=== PATIENT | male | born 1985 | race Caucasian/White ===

== ENCOUNTER 2018-09-13 01:14 | Emergency (ER) | payer BC ==
[2018-09-13 01:23] VITALS: TEMP 97.4
--- NOTE | 2018-09-13 01:54 | ED ---
Male Urogenital HPI - General Source: patient, RN notes reviewed, old records reviewed, Caregiver Mode of arrival: ambulatory Limitations: physical limitation <Martha Harrington - Last Filed: 09/13/18 04:06> <Lilli Martinez - Last Filed: 09/13/18 04:51> - General Chief complaint: Urogenital Stated complaint: Testicular Pain Time Seen by Provider: 09/13/18 01:29 - History of Present Illness Initial comments: 33-year-old male presents emergency department today for evaluation of left scrotal pain. Patient reports it seemed like it. So after doing heavy lifting a certain have some pain. Patient reports that he's had progressive worsening symptoms since 4:00 this evening. Patient reports it's worse with coughing sitting o pressing on the abdomen. Denies any dysuria or penile discharge. No concern for STDs. (Martha Harrington) - Related Data Allergies Allergy/AdvReac Type Severity Reaction Status Date / Time vancomycin Allergy Rash/Hives Verified 09/13/18 01:23 Review of Systems ROS Other: All systems not noted in ROS Statement are negative. <Martha Harrington - Last Filed: 09/13/18 04:06> ROS Other: All systems not noted in ROS Statement are negative. <Lilli Martinez P - Last Filed: 09/13/18 04:51> ROS Statement: Those systems with pertinent positive or pertinent negative responses have been documented in the HPI. Past Medical History Past Medical History: No Reported History History of Any Multi-Drug Resistant Organisms: Other MDRO Date of last positivie culture/infection: 2011 MDRO Source:: finger left index Additional Past Surgical History / Comment(s): hernia repair- 2007 Past Psychological History: No Psychological Hx Reported Smoking Status: Never smoker Past Alcohol Use History: None Reported Past Drug Use History: None Reported <Martha Harrington - Last Filed: 09/13/18 04:06> General Exam Limitations: physical limitation General appearance: alert, in no apparent distress Head exam: Present: atraumatic Eye exam: Present: normal appearance, PERRL, EOMI. Absent: scleral icterus, conjunctival injection, periorbital swelling ENT exam: Present: normal exam, mucous membranes moist Neck exam: Present: normal inspection. Absent: tenderness, meningismus, lymphadenopathy Respiratory exam: Present: normal lung sounds bilaterally. Absent: respiratory distress, wheezes, rales, rhonchi, stridor Cardiovascular Exam: Present: regular rate, normal rhythm, normal heart sounds. Absent: systolic murmur, diastolic murmur, rubs, gallop, clicks GI/Abdominal exam: Present: soft, normal bowel sounds. Absent: distended, tenderness, guarding, rebound, rigid exam: Present: testicular tenderness (Said testicular tenderness.). Absent: scrotal swelling, vertical testicular lie, circumcision External exam: Present: normal external exam Speculum exam: Present: normal speculum exam By manual exam: Present: normal by manual exam Extremities exam: Present: normal inspection, full ROM, normal capillary refill. Absent: tenderness, pedal edema, joint swelling, calf tenderness Back exam: Present: normal inspection Neurological exam: Present: alert, oriented X3, CN II-XII intact Psychiatric exam: Present: normal affect, normal mood Skin exam: Present: warm, dry, intact, normal color. Absent: rash <Martha Harrington - Last Filed: 09/13/18 04:06> - General Exam Comments Initial Comments: 33-year-old male. Alert and oriented. No significant distress. (Martha Harrington) Course Vital Signs 09/13/18 09/13/18 01:16 04:16 Temperature 97.4 F L Pulse Rate 47 L 70 Respiratory 18 16 Rate Blood Pressure 111/65 130/62 O2 Sat by Pulse 98 Oximetry Medical Decision Making - Radiology Data Radiology results: report reviewed <Martha Harrington - Last Filed: 09/13/18 04:06> <Lilli Martinez - Last Filed: 09/13/18 04:51> - Medical Decision Making 33-year-old male presents emergency department today for evaluation complaints of left-sided testicular pain worsening over the past 4 days. Symptoms started after doing heavy lifting. Patient has some testicular tenderness, as well as slight bulge with coughing noted on hernia exam. Patient has no sign of strangulation. Patient has normal urinalysis. Ultrasound was positive for left-sided varicocele. Discusses likely source patient's pain. Discussed he needs to use scrotal support and follow-up with urology. (Martha Harrington) I was available for consultation in the emergency department. The history and physical exam were done by the midlevel provider. I was consulted for this patient's care. I reviewed the case with the midlevel provider and based on their presentation of the patient, I agree with the assessment, medical decision making and plan of care as documented. Chart was dictated using [employer] dictation software. Attempts were made to correct any dictation errors however some typographical errors may persist. (Lilli Martinez) - Lab Data Lab Results 09/13/18 Range/Units 03:27 Urine Color Light Yellow Urine Appearance Clear (Clear) Urine pH 6.0 (5.0-8.0) Ur Specific [place] 1.020 (1.001-1.035) Urine Protein Negative (Negative) Urine Glucose (UA) Negative (Negative) Urine Ketones Negative (Negative) Urine Blood Negative (Negative) Urine Nitrite Negative (Negative) Urine Bilirubin Negative (Negative) Urine Urobilinogen <2.0 (<2.0) mg/dL Ur Leukocyte Esterase Negative (Negative) - Radiology Data Ultrasound shows no acute findings. No orchitis reports an. Left-sided varicocele. (Martha Harrington) Disposition Is patient prescribed a controlled substance at d/c from ED?: No Time of Disposition: 03:48 <Martha Harrington - Last Filed: 09/13/18 04:06> <Lilli Martinez - Last Filed: 09/13/18 04:51> Clinical Impression: Left varicocele Disposition: HOME SELF-CARE Condition: Good Instructions (If sedation given, give patient instructions): Varicocele (ED) Additional Instructions: Patient advised to follow-up with PCP and urology. Patient should use scrotal support with compression shorts. Return to emergency department if any alarming signs or symptoms occur. Referrals: Arnold Cross MD [Primary Care Provider] - 1-2 days Se Chou MD [STAFF PHYSICIAN] - 1-2 days
--- NOTE | 2018-09-13 03:40 | US ---
EXAM: US Scrotum CLINICAL HISTORY: ITS.REASON US Reason: Pain TECHNIQUE: Real-time ultrasound of the scrotum with color Doppler and image documentation. COMPARISON: No relevant prior studies available. FINDINGS: Right testicle: No mass. No torsion. Left testicle: No mass. No torsion. Epididymides: Unremarkable. Scrotum: No hydroceles. Left varicocele. IMPRESSION: 1. No acute findings. No orchitis or torsion. 2. Left-sided varicocele.
[2018-09-13 03:57] LABS: Appearance,Urine Clear (Clear); Bilirubin,Urine Negative (Negative); Blood,Urine Negative (Negative); Color,Urine Light Yellow; Glucose,Urine (UA) Negative (Negative); Ketones,Urine Negative (Negative); Leukocyte Esterase,Urine Negative (Negative); Nitrite,Urine Negative (Negative); Protein,Urine Negative (Negative); Urobilinogen,Urine <2.0 mg/dL (<2.0)
[2018-09-13 04:22] VITALS: BP 130/62; PULSE 70; RESP 16
== END 2018-09-13 04:22 | disposition home or self-care (01) ==
LOC: EC 01:14
DX: I86.1 Scrotal varices (principal); Z88.1 Allergy status to other antibiotic agents; X50.0XXA Overexertion from strenuous movement or load, initial encounter
CPT/HCPCS: 76870; 81003; 93975; 99284

== ENCOUNTER → 2020-02-11 | Outpatient (CLI) | payer BC ==
[2020-02-12 04:36] LABS: Rheumatoid Factor, Qnt <4 IU/mL (0-15); Uric Acid 5.4 mg/dL (3.7-8.7)
[2020-02-12 07:02] LABS: Cyclic Citrullinated Pep IgG NEGATIVE (NEGATIVE)
[2020-02-12 12:10] LABS: HLA B27 NEGATIVE
== END | disposition home or self-care (01) ==
LOC: LABWHC1 12:27
PROVIDERS: ATTEND Orthopaedic Surgery Foot and Ankle Surgery
DX: G57.51 Tarsal tunnel syndrome, right lower limb (principal); G57.52 Tarsal tunnel syndrome, left lower limb
CPT/HCPCS: 36415; 82306; 84443; 84550; 85652; 86200; 86431; 86812

== ENCOUNTER 2022-03-19 11:43 | Emergency (ER) | payer BC ==
[2022-03-19 12:37] VITALS: BP 132/80; RESP 16; TEMP 98
--- NOTE | 2022-03-19 13:26 | ED ---
General Adult HPI - General Chief complaint: Trauma Stated complaint: knee injury Time Seen by Provider: 03/19/22 13:09 Source: patient Mode of arrival: ambulatory Limitations: no limitations - History of Present Illness Initial comments: This patient is a 36-year-old man who presents to have evaluation of his left leg. The patient states that yesterday in the evening he had been chopping some wood. He was using an ax he states just taking short swings and the ax glanced off piece and struck him medial aspect of the left knee. He states that he c leansed the wound last night and again this morning using Hibiclens any applied mupirocin ointment. He bandaged it and thought he was doing well but this morning he had an increase in bleeding so he did go to an urgent care to see about it and they forwarded him here because of the bleeding. Patient states that his last tetanus shot was probably 6 or 8 years ago. He denies significant pain and declines analgesia. He denies loss of function man has been ambulating. Onset/Timin -: hour(s) Location: left, lower extremity Quality: sharp Consistency: intermittent Improves with: none Worsens with: none Associated Symptoms: other (bleeding) - Related Data Allergies Allergy/AdvReac Type Severity Reaction Status Date / Time vancomycin Allergy Rash/Hives Verified 03/19/22 12:37 Review of Systems ROS Statement: Those systems with pertinent positive or pertinent negative responses have been documented in the HPI. ROS Other: All systems not noted in ROS Statement are negative. Constitutional: Denies: fever, chills Respiratory: Denies: cough, dyspnea Cardiovascular: Denies: chest pain, palpitations Gastrointestinal: Denies: abdominal pain Musculoskeletal: Denies: back pain Skin: Reports: as per HPI, other (Left leg laceration) Neurological: Denies: weakness, numbness, paresthesias Past Medical History Past Medical History: No Reported History History of Any Multi-Drug Resistant Organisms: Other MDRO Date of last positivie culture/infection: 2011 MDRO Source:: finger left index Additional Past Surgical History / Comment(s): hernia repair- 2007 Past Psychological History: No Psychological Hx Reported Smoking Status: Heavy tobacco smoker Past Alcohol Use History: Daily Past Drug Use History: None Reported General Exam Limitations: no limitations General appearance: alert, in no apparent distress GI/Abdominal exam: Present: other (Strong distal pulses. Normal capillary refill.) Left Upper Leg exam: Present: normal inspection, full ROM. Absent: tenderness, swelling Knee exam: Present: normal inspection, full ROM, laceration. Absent: tenderness, swelling Lower Leg exam: Present: normal inspection, full ROM. Absent: tenderness, swelling Neurovascular tendon exam: Absent: pulse deficit, abnormal cap refill Skin exam: Present: warm, dry, normal color, other (Approximately 3 cm laceration to the medial aspect of the left knee.) Course Vital Signs 03/19/22 12:35 Temperature 98 F Pulse Rate 82 Respiratory 16 Rate Blood Pressure 132/80 O2 Sat by Pulse 98 Oximetry Procedures - Laceration Laceration #1 Consent Obtained: verbal consent Indication: laceration Site: lower extremity Size (cm): 3 Description: linear Depth: simple, single layer Anesthetic Used: lidocaine 1% Anesthesia Technique: local infiltration Amount (mls): 2 Type of Sutures: nylon Size of Sutures: 4-0 Number of Sutures: 7 Technique: simple, interrupted Patient Tolerated Procedure: well, no complications Disposition Clinical Impression: Laceration of leg Disposition: HOME SELF-CARE Condition: Good Instructions (If sedation given, give patient instructions): Laceration (DC) Is patient prescribed a controlled substance at d/c from ED?: No Referrals: Arnold Cross MD [Primary Care Provider] - 1-2 days
[2022-03-19] MEDS ORDERED: LIDOCAINE 1% (PF) 10 MG/ML (30 ML SDV) SQ STA (14:24)
--- NOTE | 2022-03-19 14:33 | XR ---
Left knee. HISTORY: Rule out foreign body following injury with an axe. COMPARISON: None. TECHNIQUE: 3 views of the left knee were obtained. There is no fracture, dislocation, intraosseous or intra-articular abnormality. There is no radiopaqu e foreign body and the soft tissues are unremarkable.. IMPRESSION: No significant abnormality seen. There is no radiopaque foreign body.
[2022-03-19 15:10] VITALS: PULSE 68
== END 2022-03-19 15:09 | disposition home or self-care (01) ==
LOC: EC 11:43
DX: S81.812A Laceration without foreign body, left lower leg, initial encounter (principal); F17.210 Nicotine dependence, cigarettes, uncomplicated; Z88.1 Allergy status to other antibiotic agents; W22.8XXA Striking against or struck by other objects, initial encounter
CPT/HCPCS: 12002; 99283

== ENCOUNTER 2024-05-02 07:24 | Day surgery (SDC) | payer BC ==
[2024-05-01 11:29] VITALS: BMI 30.2
--- NOTE | 2024-05-02 06:33 | P.GSHP ---
History of Present Illness H&P Date: 05/02/24 CHIEF COMPLAINT: GERD and change in bowel habits HISTORY OF PRESENT ILLNESS: The patient is a 38-year-old male who presents with gastroesophageal reflux disease and change in bowel habits. Upper and lower endoscopy were offered for further evaluation and management. PAST MEDICAL HISTORY: Please see list. PAST SURGICAL HISTORY: Please see list. MEDICATIONS: Please see list. ALLERGIES: Please see list. SOCIAL HISTORY: No illicit drug use FAMILY HISTORY: No reports of Crohn disease or ulcerative colitis. REVIEW OF ORGAN SYSTEMS: CONSTITUTIONAL: No reports of fevers or chills. GI: Denies any blood in stools or constipation. PHYSICAL EXAM: VITAL SIGNS: Stable GENERAL: Well-developed pleasant in no acute distress. HEENT: No scleral icterus. Extraocular movements grossly intact. Moist buccal mucosa. NECK: Supple without lymphadenopathy. CHEST: Unlabored respirations. Equal bilateral excursions. CARDIOVASCULAR: Regular rate and rhythm. Distal 2+ pulses. ABDOMEN: Soft, nondistended. MUSCULOSKELETAL: No clubbing, cyanosis, or edema. ASSESSMENT: 1. Gastroesophageal reflux disease 2. Change in bowel habits PLAN: 1. Recommend proceeding with an upper and lower endoscopy Past Medical History Past Medical History: No Reported History Additional Past Medical History / Comment(s): FAMILY HX CANCER History of Any Multi-Drug Resistant Organisms: Other MDRO Date of last positivie culture/infection: 2011 MDRO Source:: finger left index Past Surgical History: Hernia Repair Additional Past Surgical History / Comment(s): hernia repair- 2007, Past Anesthesia/Blood Transfusion Reactions: No Reported Reaction Smoking Status: Current every day smoker - Past Family History Father Family Medical History: Cancer Medications and Allergies Home Medications Medication Instructions Recorded Confirmed Type No Known Home Medications 05/01/24 05/01/24 History Allergies Allergy/AdvReac Type Severity Reaction Status Date / Time vancomycin Allergy Rash/Hives Verified 05/01/24 11:19
[2024-05-02] MEDS ORDERED: LIDOCAINE 1% (10MG/ML) FOR IV START INTRADERMA PRN (07:32)
[2024-05-02 07:51] VITALS: RESP 16; TEMP 97.3
[2024-05-02] MEDS: IV FLUID CONTINUATION 1,000 ML IV ONE ×3 (07:56→08:49)
[2024-05-02] MEDS: LACTATED RINGERS 1,000 ML IV SCH (08:02)
[2024-05-02] MEDS ORDERED: LIDOCAINE 1% INJ 10MG/ML (20 ML MDV) ONE (08:15)
[2024-05-02] MEDS ORDERED: PROPOFOL 10 MG/ML 20 ML VIAL IV ONE (08:15)
--- NOTE | 2024-05-02 08:31 | P.PCN ---
Date of Procedure: 05/02/24 Description of Procedure: PREOPERATIVE DIAGNOSIS: Gastroesophageal reflux disease. Gastritis Family history gastrointestinal malignancy POSTOPERATIVE DIAGNOSIS: Gastroesophageal reflux disease. Gastritis. Diaphragmatic hiatal hernia OPERATION: Esophagogastroduodenoscopy with cold forceps biopsies along esophagus, antrum and duodenum SURGEON: Anahi Mccord MD ANESTHESIA: MAC. INDICATIONS: The patient is a 38-year-old male who presents with reflux disease. Benefits and risks of the procedure were described. Informed consent was obtained. DESCRIPTION: The patient was brought into the endoscopy suite and laid in the left lateral decubitus position. An Olympus gastroscope was passed along the posterior oropharynx down to the distal esophagus where the squamocolumnar junction was encountered at 38 cm from the incisors. The stomach was entered and no bile reflux was found. Additional findings are listed below. Biopsies with cold forceps were obtained of the antrum. The first through third portion of the duodenum was examined. Retroflexion of the scope confirmed Hill grade 3 lower esophageal valve. The squamocolumnar junction demonstrated LA grade B erosive esophagitis. The stomach was desufflated. The patient tolerated the procedure well. FINDINGS: Squamocolumnar junction 38 cm from the incisors. Diaphragmatic hiatus at 41 cm. Hiatal hernia, 3 cm Hill grade 2 lower esophageal valve. LA grade B erosive esophagitis. Biopsies obtained of the duodenum. Chronic gastritis with biopsies obtained. RECOMMENDATIONS: Upper endoscopy as needed.
--- NOTE | 2024-05-02 08:51 | P.PCN ---
Date of Procedure: 05/02/24 Description of Procedure: PREOPERATIVE DIAGNOSIS: Family history of gastrointestinal malignancy Change in bowel habits POSTOPERATIVE DIAGNOSIS: Tubular adenoma cecum Microscopic colitis Rectal lesion OPERATION: Colonoscopy to the ileocecal valve and appendiceal orifice, cecum Colonoscopy with cold forceps biopsy SURGEON: Anahi Mccord MD. ANESTHESIA: MAC. INDICATIONS: The patient is an 38-year-old male who presents with change in bowel habits and family history of gastrointestinal malignancy. Benefits and risks were described and informed consent was obtained. DESCRIPTION OF PROCEDURE: The patient had undergone Sutab prep. The patient had been brought into the operating room and laid in the left lateral decubitus position. After adequate intravenous sedation, the rectum was examined with 2% lidocaine jelly. The prostate was unremarkable. No large external hemorrhoids were encountered. The rectal tone was within normal limits. No lesions were palpated in the rectal vault. An Olympus colonoscope was advanced until the cecum, ileocecal valve and appendiceal orifice were clearly viewed. The prep was good sigmoid diverticulosis was encountered. Colonic polyps were found and removed. No evidence of focal colitis was found. Retroflexion of the scope demonstrated grade 2 internal hemorrhoids without active bleeding or inflammation. The colon was desufflated. The patient had tolerated the procedure well. Withdrawal time was over 6 minutes. FINDINGS: Aronchick preparation quality scale 1+ (1-5) Internal hemorrhoids, grade 2 External hemorrhoids, grade 4. No arteriovenous malformations. No sigmoid diverticulosis Random biopsies cold forceps for microscopic colitis Removal of 2 polyps: - Cold forceps biopsy at 10 cm from the anal verge, 4 mm lesion, rectum - Cold forceps biopsy at cecum, 5 mm adenoma. No focal colitis. RECOMMENDATIONS: Repeat colonoscopy in 3 2026 Plan - Discharge Summary Discharge Rx Participant: No New Discharge Prescriptions: No Action No Known Home Medications Discharge Medication List No Known Home Medications 05/01/24 [History] Follow up Appointment(s)/Referral(s): Anahi Mccord MD [STAFF PHYSICIAN] - 06/18/24 4:30 pm Patient Instructions/Handouts: Colorectal Polyps (GEN), Hiatal Hernia (DC) Activity/Diet/Wound Care/Special Instructions: Repeat colonoscopy 3 years, 2026 Discharge Disposition: HOME SELF-CARE
[2024-05-02 09:32] VITALS: BP 120/77; PULSE 65
== END 2024-05-02 09:34 | disposition home or self-care (01) ==
LOC: ORWHC2ENDO 07:24
PROVIDERS: ATTEND Surgery Plastic and Reconstructive Surgery
DX: D12.0 Benign neoplasm of cecum (principal); K29.50 Unspecified chronic gastritis without bleeding; K44.9 Diaphragmatic hernia without obstruction or gangrene; K21.00 Gastro-esophageal reflux disease with esophagitis, without bleeding; K31.89 Other diseases of stomach and duodenum; K64.1 Second degree hemorrhoids; K64.3 Fourth degree hemorrhoids; Z80.0 Family history of malignant neoplasm of digestive organs; Z98.890 Other specified postprocedural states; Z87.891 Personal history of nicotine dependence
CPT/HCPCS: 88305; 45380; 43239; J2003; J2704